=== PATIENT | female | born 2000 | race Caucasian/White ===

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

== ENCOUNTER 2018-01-08 23:19 | Emergency (ER) | payer OTHER ==
[2018-01-09] MEDS ORDERED: ONDANSETRON 4MG/2ML VIAL (J2405) IV
[2018-01-09 00:30] LABS: BASO % 0.4 % (0.0-1.0); EOS # 0.3 10^3/uL (0.0-0.50); EOS % 2.4 % (0.0-3.0); HEMATOCRIT 37.4 % (36.0-47.0); HEMOGLOBIN 12.7 g/dl (12.0-15.5); IMMATURE GRANULOCYTE % 0.3 % (0-3.0); LYMPH # 2.5 10^3/uL (1.5-6.5); LYMPH % 22.7 % (24.0-44.0); MEAN CORPUSCULAR HEMOGLOBIN 29.3 pg (27.0-33.0); MEAN CORPUSCULAR VOLUME 86.2 fl (80.0-96.0); MONO # 0.8 10^3/uL (0.0-0.8); NEUTROPHILS # 7.4 10^3/uL (1.8-7.7); NEUTROPHILS % 67.2 % (36.0-66.0); PLATELET COUNT, AUTOMATED 320 10^3/uL (150-450); RED BLOOD COUNT 4.34 10^6/uL (4.00-5.40); RED CELL DISTRIBUTION WIDTH 11.9 % (11.5-14.5)
[2018-01-09] MEDS: MECLIZINE 25 MG TABLET PO (00:42)
[2018-01-09 00:55] LABS: ANION GAP 8 MEQ/L (8-16); BLOOD UREA NITROGEN 11 MG/DL (7-18); CALCIUM LEVEL 8.9 MG/DL (8.5-10.1); CARBON DIOXIDE LEVEL 24 MEQ/L (21-32); CHLORIDE LEVEL 110 MEQ/L (98-107); CREATININE FOR GFR 0.67 MG/DL (0.55-1.30); GLUCOSE, FASTING 83 MG/DL (70-100); IRON (FE) 73 UG/DL (50-170); PERCENT SATURATION 23.9 % (13.2-45.0); POTASSIUM SERUM 3.7 MEQ/L (3.5-5.1); SODIUM LEVEL 142 MEQ/L (136-145); TOTAL IRON BINDING CAPACITY 306 UG/DL (250-450)
[2018-01-09 00:59] LABS: FERRITIN 17 NG/ML (8-252)
== END 2018-01-09 02:02 | disposition home or self-care (01) ==
LOC: M ED 01-09 02:02
DX: H60.93 Unspecified otitis externa, bilateral (principal); H61.20 Impacted cerumen, unspecified ear
CPT/HCPCS: 83550

== ENCOUNTER 2018-02-16 21:46 | Emergency (ER) | payer OTHER ==
[2018-02-16] MEDS: NS 1,000 ML IV (22:18)
[2018-02-16] MEDS: METOCLOPRAMIDE INJ 10MG/2ML VIAL (J2765) IV (23:30)
[2018-02-16] MEDS: KETOROLAC 30 MG/ML VIAL (J1885) IV (23:33)
[2018-02-16] MEDS: diphenhydrAMINE INJ 50MG/ML VIAL (J1200) IV (23:33)
== END 2018-02-17 00:13 | disposition home or self-care (01) ==
LOC: M ED 02-17 00:13
DX: G43.909 Migraine, unspecified, not intractable, without status migrainosus (principal); Z79.899 Other long term (current) drug therapy
CPT/HCPCS: J1200

== ENCOUNTER 2018-06-12 19:08 | Emergency (ER) | payer OTHER ==
[~2018-06-12] VITALS: Ht 165.1 cm; Wt 90.9 kg
[2018-06-12 19:08] VITALS: BP 140/62
[~2018-06-12 19:08] MED LIST: CETI10TA PO; CIPRODEX OTIC; DEBR6.5S4 OTIC; FLUO20CA19; MECL-86 PO; NAPR-50 PO; REGL10TA6 PO; ZOFR4TAB14 PO
[2018-06-12] MEDS ORDERED: AMOX875T PO (19:17)
[2018-06-12] MEDS ORDERED: ALEV220C2 PO (19:17)
[2018-06-12] MEDS ORDERED: CIPROFLOXACIN HC OTIC SUSPENSION AU ONE (20:30)
[2018-06-12] MEDS ORDERED: CIPR0.3S AU (20:40)
== END 2018-06-12 20:46 | disposition home or self-care (01) ==
LOC: M ED 19:08
DX: H60.93 Unspecified otitis externa, bilateral (principal); F41.9 Anxiety disorder, unspecified; F32.9 Major depressive disorder, single episode, unspecified

== ENCOUNTER 2018-09-12 17:33 | Emergency (ER) | payer OTHER ==
[~2018-09-12] VITALS: Ht 165.1 cm; Wt 88.6 kg
[~2018-09-12 17:33] MED LIST changes: +ALEV220C2 PO; +AMOX875T PO; +CIPR0.3S AU; -NAPR-50 PO; +NAPR-837 PO
[2018-09-12] MEDS ORDERED: BENA2CRE3 TOP (20:18)
[2018-09-12] MEDS ORDERED: PRED20TA PO (20:56)
[2018-09-12] MEDS ORDERED: predniSONE 20 MG TAB PO ONE (21:00)
[2018-09-12 21:07] VITALS: BP 114/64
== END 2018-09-12 21:10 | disposition home or self-care (01) ==
LOC: M ED 17:33
DX: L50.9 Urticaria, unspecified (principal); G43.909 Migraine, unspecified, not intractable, without status migrainosus; J30.2 Other seasonal allergic rhinitis; Z79.899 Other long term (current) drug therapy

== ENCOUNTER → 2018-10-11 | Outpatient (REF) | payer OTHER ==
[~2018-10-11] MED LIST changes: +BENA2CRE3 TOP; +PRED20TA PO
[2018-10-12 12:11] LABS: HEMATOCRIT 37.3 % (36.0-47.0); MEAN CORPUSCULAR HEMOGLOBIN 27.6 pg (27.0-33.0); MEAN CORPUSCULAR HGB CONC 32.2 g/dl (32.0-36.5); MEAN CORPUSCULAR VOLUME 85.7 fl (80.0-96.0); PLATELET COUNT, AUTOMATED 394 10^3/uL (150-450); RED BLOOD COUNT 4.35 10^6/uL (4.00-5.40); WHITE BLOOD COUNT 8.1 10^3/uL (4.0-10.0)
== END ==
LOC: M SFHCLERA 20:08
PROVIDERS: ATTEND Nurse Practitioner Family
DX: R53.81 Other malaise (principal)

== ENCOUNTER → 2018-11-18 | Outpatient (CLI) | payer OTHER ==
[2018-11-18 12:05] LABS: FREE T4 1.06 NG/DL (0.78-1.33); THYROID STIMULATING HORMONE 2.82 uIU/ML (0.463-3.98)
[2018-11-18 12:07] LABS: PROLACTIN 32.4 NG/ML
[2018-11-24 08:06] LABS: INSULIN FREE 18 uU/mL (.); INSULIN TOTAL2 18 uU/mL (.)
== END ==
LOC: M SMT 09:08
PROVIDERS: ATTEND Advanced Practice Midwife
DX: N92.6 Irregular menstruation, unspecified (principal)

== ENCOUNTER → 2019-07-06 | Outpatient (REF) | payer OTHER ==
[~2019-07-06] MED LIST changes: -FLUO20CA19; +FLUO20CA22
== END ==
LOC: M SFHCLERA 11:56
PROVIDERS: ATTEND Nurse Practitioner Family
DX: R53.81 Other malaise (principal)

== ENCOUNTER → 2021-01-28 | Outpatient (REF) | payer OTHER, MEDICAID ==
[~2021-01-28] MED LIST changes: -CIPR0.3S AU; +CIPR0.3S6 AU; +CIPR7.5D5 OTIC; -CIPRODEX OTIC
== END ==
LOC: M LAB REF 16:13
PROVIDERS: ATTEND Otolaryngology
DX: H60.8X3 Other otitis externa, bilateral (principal)